=== PATIENT | female | born 1995 | race Caucasian/White ===

== ENCOUNTER 2018-08-14 21:26 | Emergency (ER) | payer OTHER ==
[2018-08-14 21:38] VITALS: RESP 18; TEMP 98.4; O2SAT 100
--- NOTE | 2018-08-14 21:54 | ED PDOC ---
Arrival/HPI - General Chief Complaint: Allergic Reaction Time Seen by Provider: 08/14/18 21:27 Historian: Patient - History of Present Illness Narrative History of Present Illness (Text): 08/14/18 21:49 23 year old female, whose past medical history includes PCOS, presents to the emergency department with possible allergic reaction. Patient states she was eating some lobster when she began to feel tingling in her lips and cheek. Patient informs she does have a shrimp allergy, but is able to eat crab without any reaction. Patient states this was her first time eating lobster. Patient denies any nausea, vomiting, diarrhea, abdominal pain, fevers, chills, headache, dizziness, chest pain, shortness of breath, cough, back pain, neck pain, or any other complaint. Time/Duration: 1/2 hour Symptom Onset: Gradual Symptom Course: Unchanged Quality: Other (tingling) Activities at Onset: Light, Eating Past Medical History - Provider Review Nursing Documentation Reviewed: Yes - Infectious Disease Hx of Infectious Diseases: None - Reproductive Currently : Unknown - Cardiac Hx Cardiac Disorders: No - Pulmonary Hx Respiratory Disorders: No - Neurological Hx Neurological Disorder: No - HEENT Hx HEENT Disorder: No - Renal Hx Renal Disorder: No - Endocrine/Metabolic Hx Endocrine Disorders: No - Hematological/Oncological Hx Blood Disorders: No - Integumentary Hx Dermatological Disorder: No - Musculoskeletal/Rheumatological Hx Musculoskeletal Disorders: No - Gastrointestinal Hx Gastrointestinal Disorders: No - Genitourinary/Gynecological Hx Genitourinary Disorders: Yes Other/Comment: PCOS - Psychiatric Hx Psychophysiologic Disorder: No Hx Substance Use: No - Surgical History Other/Comment: syndactoly - Anesthesia Hx Anesthesia: Yes Hx Anesthesia Reactions: No Hx Malignant Hyperthermia: No Family/Social History - Physician Review Nursing Documentation Reviewed: Yes Family/Social History: No Known Family HX Smoking Status: Never Smoked Hx Alcohol Use: Yes Frequency of alcohol use: Socially Hx Substance Use: No Allergies/Home Meds Allergies/Adverse Reactions: Allergies shellfish derived Allergy (Verified 08/14/18 21:35) ANAPHYLAXIS Home Medications: Home Meds Medication Instructions Recorded Confirmed Ergocalciferol (Vitamin D2) 1 tab PO QWK 08/14/18 08/14/18 [Vitamin D2] RX: metFORMIN [glucOPHAGE] 500 mg PO DAILY 08/14/18 08/14/18 Review of Systems - Physician Review All systems were reviewed & negative as marked: Yes - Review of Systems Constitutional: absent: Fevers, Night Sweats Respiratory: absent: SOB, Cough Cardiovascular: absent: Chest Pain Gastrointestinal: absent: Abdominal Pain, Diarrhea, Nausea, Vomiting Musculoskeletal: absent: Back Pain, Neck Pain Neurological: absent: Headache, Dizziness Physical Exam Vital Signs Reviewed: Yes Vital Signs Temp Pulse Resp BP Pulse Ox 08/14/18 21:37 98.4 F 93 H 18 126/78 100 Temperature: Afebrile Blood Pressure: Normal Pulse: Regular Respiratory Rate: Normal Appearance: Positive for: Well-Appearing, Non-Toxic, Comfortable Pain Distress: None Mental Status: Positive for: Alert and Oriented X 3 - Systems Exam Head: Present: Atraumatic, Normocephalic Pupils: Present: PERRL Extroacular Muscles: Present: EOMI Conjunctiva: Present: Normal Mouth: Present: Moist Mucous Membranes Neck: Present: Normal Range of Motion Respiratory/Chest: Present: Clear to Auscultation, Good Air Exchange. No: Respiratory Distress, Accessory Muscle Use Cardiovascular: Present: Regular Rate and Rhythm, Normal S1, S2. No: Murmurs Abdomen: No: Tenderness, Distention, Peritoneal Signs Back: Present: Normal Inspection Upper Extremity: Present: Normal Inspection. No: Cyanosis, Edema Lower Extremity: Present: Normal Inspection. No: Edema Neurological: Present: GCS=15, CN II-XII Intact, Speech Normal Skin: Present: Warm, Dry, Normal Color. No: Rashes Psychiatric: Present: Alert, Oriented x 3, Normal Insight, Normal Concentration Medical Decision Making ED Course and Treatment: 08/14/18 21:55 Impression: 23 year old female presents with allergic reaction Plan: -- Benadryl -- Pepcid -- Prednisone -- Reassess and disposition Prior Visits: Patient not previously seen in this emergency department Progress Notes: 08/14/18 22:45 s/p meds all ysmptoms resolve.d wathcing movie on phone in nad. lungs cta. refuses further obs, asking for dc. - Medication Orders Current Medication Orders: Discontinued Medications Diphenhydramine HCl (Benadryl) 50 mg PO STAT STA Stop: 08/14/18 21:47 Famotidine (Pepcid) 20 mg PO STAT STA Stop: 08/14/18 21:47 Prednisone (Prednisone Tab) 50 mg PO STAT STA Stop: 08/14/18 21:47 - Scribe Statement The provider has reviewed the documentation as recorded by the Reba Campo Provider [place] Attestation: All medical record entries made by the Scribe were at my direction and personally dictated by me. I have reviewed the chart and agree that the record accurately reflects my personal performance of the history, physical exam, medical decision making, and the department course for this patient. I have also personally directed, reviewed, and agree with the discharge instructions and disposition. Disposition/Present on Arrival - Present on Arrival Any Indicators Present on Arrival: No History of DVT/PE: No History of Uncontrolled Diabetes: No Urinary Catheter: No History of Decub. Ulcer: No History Surgical Site Infection Following: None - Disposition Have Diagnosis and Disposition been Completed?: Yes Diagnosis: Allergic reaction Disposition: HOME/ ROUTINE Disposition Time: 22:00 Condition: STABLE Discharge Instructions (ExitCare): Food Allergy, Epinephrine Autoinjectors Additional Instructions: return to any emergency room with worsening ysmptoms or concerns. Prescriptions: DiphenhydrAMINE [Benadryl] 25 mg PO Q4 PRN #20 cap PRN Reason: Itching / Pruritus Epinephrine [Epipen] 0.3 mg IJ ONCE PRN #1 auto.injct PRN Reason: Anaphylaxis Famotidine [Pepcid] 20 mg PO DAILY #20 tab RX: Prednisone 50 mg PO DAILY #5 tablet Referrals: [facility] [Outside] - Follow up with primary [facility] at [facility] [Outside] - Follow up with primary [facility] at [facility] [Outside] - Follow up with primary Forms: [employer] (Syrian)
[2018-08-14 22:43] VITALS: BP 124/72; PULSE 82
== END 2018-08-14 22:40 | disposition home or self-care (01) ==
LOC: EDBD → ED 21:26
DX: L27.2 Dermatitis due to ingested food (principal)